=== PATIENT | male | born 1960 | race Caucasian/White ===

== ENCOUNTER 2023-10-05 12:18 | Emergency (ER) | payer OTHER, SELFPAY ==
[2023-10-05 12:20] VITALS: BP 153/78
--- NOTE | 2023-10-05 14:07 | ED.GENMED ---
History of Present Illness
General
Chief Complaint: Musculo-Skeletal Complaint
Source: patient
Exam Limitations: none
Time Seen by Provider: 10/05/23 13:20
Nursing documentation reviewed up to this point in time: agreed with
Travel History
Have you had any contact with someone who has COVID-19?: No
Do you have any symptoms of coronavirus? Fever > 100 degrees, chills, cough, shortness of breath, sore throat, loss of taste or smell, muscle aches, or headache?: No
History of Present Illness
History of Present Illness:
pt is a 63 y/o M with h/o htn ,gerd
here with right hip pain x 8 days
was swinging a golf club and did feel something in his right lateral hip which was a little sore, unusual for him because he plays a lot of golf and never hurts himself
was limiping a little but was tolerating the pain but it has gotten worse.
he has pain with weight bearing but is able to walk
a few days ago he put a bengay cream on his right anterior and medial thigh where he was really feeling soreness/senstivitiy.
and the next day got a blistery rash that he figured was from the cream
the rash has been rpesent since
no fever, chills, weakness, numbness, icnontinence of urine, back pain
he has not had any itchiness to the rash
Past History
Past History
ED Past Medical History: GERD, HTN and Other (migraines)
Social History
Alcohol: Daily
Personal: Single
Living: with family
Review of Systems
Review of Systems
Allergies reviewed?: Yes
All Other Systems: Not applicable
Phy Exam
Physical Exam
Physical Exam:
GENERAL: Alert , in no apparent distress, comfortable at rest
HEAD: NCAT
CARDIAC: Regular rate and rhythm, no edema
LUNGS: Clear breath sounds bilaterally, no acute respiratory distress, no wheezes/rales/rhonchi
ABDOMEN: Soft, without focal tenderness, no r/g, no cvat, normal bowel sounds, nondistended
no rash
NEUROLOGICAL: Alert and oriented, no focal neuro deficits, CN intact, 5/5 strength, sensation intact, ambulation slight limp right leg
SKIN: Warm and dry, vesicular erythematous rash in clusters in left medial thigh
MUSCULOSKELETAL: No edema, well perfused. Normal inspection of the right hip, right leg except for rash,
Patient has no tenderness to palpation of the hip, minimal tenderness in the R SI joint
He has no pain with flexion of the right hip, external rotation, but with internal rotation has discomfort minimally
Back: No midline tenderness, mild dextroscoliosis, no paraspinal muscle tenderness on exam, no swelling
negative straight leg raise Bilaterally
PSYCH: Normal and appropriate interaction.
Course
Orders/Labs/Results
Orders:
Orders
10/05/23 12:27
Hip, Right 2-3 Views [CR Hip - RT w/wo Pel 2-3 Vw*] Urgent
Comment:
Reason For Exam: pain no injury
Include a pelvis x-ray?: No
10/05/23 14:09
Valacyclovir HCl [Valtrex] 1,000 mg PO NOW STA
Vital Signs
Initial and Last Documented VS:
Initial Vital Signs
Temp Pulse Resp BP Pulse Ox
98.1 F 87 16 153/78 97
10/05/23 12:20 10/05/23 12:20 10/05/23 12:20 10/05/23 12:20 10/05/23 12:20
Last Documented Vital Signs
Temp Pulse Resp BP Pulse Ox
98.1 F 87 16 153/78 97
10/05/23 12:20 10/05/23 12:20 10/05/23 12:20 10/05/23 12:20 10/05/23 12:20
MDM/Problems Addressed
Differential Diagnosis Includes:
hip arthritis, bursitis, dic herniation, labrum tear, shingles
MDM/Problems Addressed:
63 y/o M with h/o htn
here with right hip pain radiating into left thigh after swinging golf club a week ago
he says it started in his right hip as a soreness, and a little limp
a few days later progressed to some pain in the anterior and medial thigh so he put cream on it and then the next day had an eruption of vesicles, in the area where he put the cream but not theentire area
he has had chicken pox as a child
no fever, chills
on exam the patient is wel lpaearing, ambulatory
normal inspection right hip
has some posterio PSIS tenderness mildly but otherwise normal ROM and exam
there is an erythematous vesicular rash to left medial/anterior thigh that is classic for herpes zoster
xrays indep reviewed, mild arthritis
no back pain and i shira not suspect the radicular pain is from his back but probably from neuropathic pain from shingles
valacyclovir given age
pain meds to help pt sleep
nsaids tolerated wel by patient he sayus
discusse dneurontin, will talk with pcp
*Critical Care Note
Total Time (30-74mins, 75-104mins- exclusive of procedures): Not Applicable
ED Attending Note
-
Portions of this chart may have been created with voice recognition software.� Occasional wrong word or��sound alike� substitutions may have occurred due to the inherent limitations of voice recognition software.
Discharge Plan
Departure
Patient Disposition: Home (Routine Discharge)
Date of Disposition: 10/05/23
Time of Disposition: 14:14
Patient with high blood pressure during this ER visit?: Yes
Condition: Fair
Covid-19: Not Applicable
Discharge Problem:
Shingles, Acute pain of right hip
Instructions: Shingles, BLOOD PRESSURE, Musculoskeletal Pain
Prescriptions:
New
valacyclovir 1 gram tablet
1,000 mg PO Q8H Qty: 30 0RF
hydrocodone-acetaminophen 5-325 mg tablet
1 tab PO Q8H PRN (Reason: Pain) Qty: 12 0RF
No Action
rizatriptan [Maxalt] 10 MG tablet
10 mg PO DAILYPRN PRN (Reason: migraines)
metoprolol succinate 100 MG tablet extended release 24 hr
100 mg PO DAILY
pantoprazole 40 MG tablet,delayed release (DR/EC)
40 mg PO DAILY
losartan 25 MG tablet
25 mg PO DAILY
aspirin 81 MG tablet,delayed release (DR/EC)
81 mg PO DAILY
multivitamin with folic acid [Tab-A-Sawyer] 1 TABLET tablet
1 tab PO DAILY
Benadryl:
3 tab PO HSPRN PRN (Reason: sleep)
docusate sodium 100 MG capsule
100 mg PO BID 0RF
tramadol 50 MG tablet
50 mg PO Q8H PRN (Reason: Mod sev pain) Qty: 14 0RF
sulfamethoxazole-trimethoprim 1 TABLET tablet
2 tab PO BID Qty: 36 0RF
Activity Restrictions/Additional Instructions:
It is possible that you could have 2 problems going on right now like you pulled some muscles in your hip mild arthritis which was visualized on x-ray. But it is more likely that you have shingles as a cause for your pain. This is a reactivation
of the chickenpox virus and it is contagious mostly by contactOr you so make sure the area is covered up when you are around young kids younger than 1 years old, women or really elderly people. The lesions will crust over and once they are
scabbed are no longer considered contagious. Take Valtrex 3 times a day for 7 to 10 days. For pain you can use ibuprofen 600 mg 1 tab 2-3 times a day as needed with food. You could also use of Vicodin at night as needed 1 tablet before bed to
help you sleep. You can use regular Tylenol once during the day as well. Follow-up with your doctor if you have residual symptoms or if you start having any worsening pain. Return for fever, leg weakness, leg numbness, incontinence or any concerns
Interventions
Interventions:
*Risk Screen - Suicide Last Done: 10/05/23 12:20
*General Assessment Last Done: 10/05/23 12:20
*Neglect/Abuse Screening Last Done: 10/05/23 12:20
*ED COVID-19 Vaccine History Last Done: 10/05/23 12:20
*Nursing Disposition Last Done: 10/05/23 14:37
ED-Musculoskeletal Assessment Last Done: 10/05/23 12:39
Discharge Date and Time
Discharge Date/Time: 10/05/23 14:44
Print Language: GUINEAN
[2023-10-05] MEDS: VALTREX 1000 MG PO (14:25)
== END 2023-10-05 14:44 | disposition home or self-care (01) ==
LOC: EMR 12:18
PROVIDERS: EMERGENCY PHYSICIAN Emergency Medicine
DX: B02.9 Zoster without complications (principal); M25.551 Pain in right hip; I10 Essential (primary) hypertension; K21.9 Gastro-esophageal reflux disease without esophagitis
CPT/HCPCS: 99283; 73502

== ENCOUNTER → 2024-10-23 11:13 | Outpatient (REF) | payer MEDICARE, OTHER, SELFPAY | LOC: RCS 11:13 | PROVIDERS: ATTENDING PHYSICIAN Internal Medicine Cardiovascular Disease; FAMILY PHYSICIAN Family Medicine | DX: I34.0 Nonrheumatic mitral (valve) insufficiency (principal) | CPT/HCPCS: 93306 ==

== ENCOUNTER → 2025-03-06 12:06 | Outpatient (REF) | payer MEDICARE, OTHER, SELFPAY | LOC: MRI 3T 12:06 | PROVIDERS: ATTENDING PHYSICIAN Urology; FAMILY PHYSICIAN Family Medicine | DX: R97.20 Elevated prostate specific antigen [PSA] (principal); C61 Malignant neoplasm of prostate | CPT/HCPCS: 72197; A9575 ==